=== PATIENT | female | born 1960 | race Caucasian/White ===

== ENCOUNTER 2016-04-03 10:35 | Inpatient (IN) | payer MEDICARE, OTHER ==
[~2016-04-03] VITALS: Ht 154.9 cm; Wt 79.8 kg
[~2016-04-03 10:35] MED LIST: Z.0.COMMODE-3:1; Z.0.WALKERFRONT
[2016-04-05] MEDS ORDERED: ATOR20TA15 PO (11:45)
[2016-04-05] MEDS ORDERED: OMEP20TA PO (11:46)
[2016-04-05] MEDS ORDERED: HYDR-2376 PO (11:47)
[2016-04-05] MEDS ORDERED: LYRI50CA PO (11:48)
[2016-04-08] MEDS: SODIUM CHLORID 0.9% 500 ML IV SCH (07:45)
[2016-04-08] MEDS: CHLORHEXIDINE GLUCONATE 4% SOLN 120 ML BTL TOP SCH (07:45)
[2016-04-08] MEDS ORDERED: INSULIN HUMAN REGULAR 1,000 UNITS/10 ML VIAL SQ PRN (07:45)
[2016-04-08] MEDS: TRANEXAMIC PERI-ARTICULAR 3,000 MG/NS 100 ML P-ARTICULR SCH ×4 (07:45→10:54)
[2016-04-08] MEDS ORDERED: VANCOMYCIN 1000 MG/NS 250 ML (for <70 kg) IV SCH ×2 (07:45)
[2016-04-08] MEDS ORDERED: METOPROLOL TARTRATE 25 MG TAB PO PRN (07:45)
[2016-04-08] MEDS: POVIDONE IODINE 7.5% SCRUB 118 ML BOTTLE TOP SCH (07:45)
[2016-04-08] MEDS: TRANEXAMIC ACID INJ 1,200 MG in SODIUM CHLORIDE 0.9% INJ 100 ML IV SCH ×2 (07:45→10:25)
[2016-04-08] MEDS ORDERED: ceFAZolin 2 GM PREMIX 50 ML IV SCH (07:45)
[2016-04-08] MEDS: EXPAREL PERI-ARTICULAR INJECTION (TOTAL VOL. 60 ML) P-ARTICULR SCH ×4 (07:45→10:54)
[2016-04-08 07:57] VITALS: BP 104/76; PULSE 80; RESP 16; TEMP 98.2; O2SAT 99
[2016-04-08] MEDS: LACTATED RINGER'S 1000 ML IV SCH (08:00)
[2016-04-08] MEDS ORDERED: PANTOPRAZOLE SOD 20 MG DELAYED RELEASE TAB PO PRN (09:00)
[2016-04-08] MEDS ORDERED: HYDR-3288 PO (09:04)
[2016-04-08] MEDS ORDERED: ENOX40P SQ (09:04)
[2016-04-08] MEDS ORDERED: ALUMINUM/MAGNESIUM/SIMETH 30 ML CUP PO PRN (09:15)
[2016-04-08] MEDS ORDERED: BISACODYL 10 MG SUPP PR PRN (09:15)
[2016-04-08] MEDS ORDERED: Post-op Orders (for Pharmacy) MISC XX ONE (09:15)
[2016-04-08] MEDS ORDERED: SODIUM CHLORIDE 0.9% FLUSH 5 ML FLUSH IVF PRN (09:15)
[2016-04-08] MEDS ORDERED: ONDANSETRON HCL 4 MG/2 ML VIAL IVP PRN (09:15)
[2016-04-08] MEDS ORDERED: diphenhydrAMINE HCL 50 MG/ML VIAL IV PRN (09:15)
[2016-04-08] MEDS ORDERED: NALOXONE HCL 0.4 MG/ML AMP IV PRN (09:15)
[2016-04-08] MEDS ORDERED: ACETAMINOPHEN/HYDROcodone 325 MG/10 MG TAB PO PRN (09:15)
[2016-04-08] MEDS ORDERED: ZOLPIDEM TARTRATE 5 MG TAB PO PRN (09:15)
[2016-04-08] MEDS ORDERED: MORPHINE SULFATE 4 MG/ML INJ IV PUSH PRN (09:15)
[2016-04-08] MEDS ORDERED: GENTAMICIN SULFATE 80 MG/2 ML VIAL ONE (09:32)
[2016-04-08] MEDS ORDERED: MIDAZOLAM HCL 2 MG/2 ML VIAL ONE (09:53)
[2016-04-08] MEDS ORDERED: ACETAMINOPHEN 1000 MG/100 ML VIAL IV ONE (09:53)
[2016-04-08] MEDS ORDERED: FAMOTIDINE 20 MG/2 ML VIAL ONE (09:53)
[2016-04-08] MEDS ORDERED: PROPOFOL 200 MG/20 ML AMP IV ONE (10:23)
[2016-04-08] MEDS ORDERED: LACTATED RINGER'S 1000 ML INJ 2,000 ML IV ONE (10:23)
[2016-04-08] MEDS ORDERED: NEOSTIGMINE 3 MG/3 ML SYR IV ONE (10:23)
[2016-04-08] MEDS ORDERED: ePHEDrine/NS 25 MG/5 ML SYR IV ONE (10:23)
[2016-04-08] MEDS ORDERED: ONDANSETRON HCL 4 MG/2 ML VIAL IV PUSH ONE (10:23)
--- NOTE | 2016-04-08 11:36 | EKG ---
Date Performed: 04/08/2016 Time Performed: 08:31:11 PTAGE: 55 years EKG: Sinus rhythm NORMAL ECG NO PREVIOUS TRACING DOCTOR: Bull Fuentes Interpretating Date/Time 04/08/2016 11:34:31
[2016-04-08] MEDS ORDERED: HYDROmorphone HCL PF 2 MG/ML VIAL ONE (11:48)
[2016-04-08] MEDS ORDERED: fentaNYL CITRATE 250 MCG/5 ML AMP ONE (12:43)
[2016-04-08] MEDS ORDERED: *morphine SULFATE 8 MG/ML PERIprocedure ONLY ONE (12:46)
[2016-04-08] MEDS ORDERED: *MEPERIDINE 25 MG INJ VIAL PERIprocedural Use ONLY ONE (12:59)
[2016-04-08] MEDS: SODIUM CHLOR 0.9% 1000 ML INJ 1,000 ML IV SCH ×2 (13:00→19:01)
[2016-04-08] MEDS ORDERED: DO NOT ADM ANY ANTICOAGULANT DRUGS XX PRN (13:45)
[2016-04-08] MEDS: ceFAZolin 2 GM PREMIX 50 ML IV SCH ×2 (14:15→20:46)
[2016-04-08 14:45] LABS: AUTOMATED NEUTROPHIL # 12.4 TH/MM3 (1.8-7.7); BASOPHIL % 0.2 % (0.0-2.0); EOSINOPHIL % 0.2 % (0.0-4.0); HEMATOCRIT 35.2 % (35.0-46.0); HEMO FLAGS DIFF FINAL; LYMPH % 9.3 % (9.0-44.0); LYMPHOCYTE # 1.3 TH/MM3 (1.0-4.8); MEAN CELL VOLUME 86.2 FL (80.0-100.0); MEAN CORPUSCULAR HEMOGLOBIN 28.7 PG (27.0-34.0); MEAN CORPUSCULAR HGB CONC 33.3 % (32.0-36.0); NEUT % 89.3 % (16.0-70.0); PLATELET COUNT 232 TH/MM3 (150-450); RED BLOOD COUNT 4.09 MIL/MM3 (4.00-5.30); RED CELL DISTRIBUTION WIDTH 15.2 % (11.6-17.2); WHITE BLOOD COUNT 13.9 TH/MM3 (4.0-11.0)
--- NOTE | 2016-04-08 14:57 | RADRPT ---
EXAM DATE/TIME: 04/08/2016 13:54 [facility] COMPARISON: No previous studies available for comparison. INDICATIONS : Right hip prosthesis. MEDICAL HISTORY : unobtainable SURGICAL HISTORY : unobtainable ENCOUNTER: Initial ACUITY: 1 day PAIN SCORE: 8/10 LOCATION: Right hip FINDINGS: The patient is status post a total hip arthroplasty with a bipolar prosthesis. Prosthesis is well-sea gail. Alignment is anatomic. A fracture is not appreciated. CONCLUSION: Anatomic alignment. Xavier Garcia MD FACR Board Certified Radiologist. This report was verified electronically.
[2016-04-08 14:59] LABS: BICARBONATE 27.6 MEQ/L (21.0-32.0)
[2016-04-08 18:20] VITALS: BP 96/53; PULSE 69; RESP 14; TEMP 95.1; O2SAT 100
[2016-04-08 20:10] VITALS: BP 88/59; PULSE 71; RESP 16; TEMP 96.6; O2SAT 100
[2016-04-08] MEDS: SODIUM CHLORIDE 0.9% FLUSH 5 ML FLUSH IVF SCH (20:46)
[2016-04-08] MEDS: PREGABALIN 25 MG CAP PO SCH (21:00)
--- NOTE | 2016-04-08 21:14 | PD.CONS ---
[facility] By [facility] Reason for Consult Medical management Primary Care Physician Umu Murguia MD Diagnoses: History of Present Illness 55 years old female admitted for right total hip arthroplasty due to arthritis, [facility] consulted for medical management, patient seen post of doing well, pain is tolerable, no chest pain short of breath abdominal pain diarrhea constipation, orthopnea or PND, patient denied any previous history of hypertension hypercholesterolemia, coronary artery disease or other thyroid issue Review of Systems Other All 10 systems reviewed and was positive for what is mentioned in history of present illness otherwise negative Past Family Social History Allergies: Coded Allergies: No Known Allergies (Unverified , 04/08/16) Past Medical History Denied history of hypertension hyperlipidemia diabetes mellitus or coronary artery disease Family History Review nontender V3 Social History Admitted looking but she decreased to 2-3 cigarettes per day, no alcohol or illicit drug abuse Physical Exam Vital Signs Vital Signs Date Time Temp Pulse Resp B/P Pulse Ox O2 Delivery O2 Flow Rate FiO2 04/08/16 18:20 95.1 69 14 96/53 100 04/08/16 15:40 97.6 65 16 102/53 98 Nasal Cannula 2 04/08/16 15:00 67 16 100/54 97 Nasal Cannula 2 04/08/16 14:00 69 15 96/52 96 Nasal Cannula 2 04/08/16 13:45 68 15 92/52 95 Nasal Cannula 2 04/08/16 13:30 70 15 90/53 95 Nasal Cannula 2 04/08/16 13:15 70 14 92/52 95 Nasal Cannula 2 04/08/16 13:00 71 14 98/55 99 Nasal Cannula 3 04/08/16 12:45 80 14 105/62 98 Nasal Cannula 3 04/08/16 12:37 97.5 83 13 118/69 97 Nasal Cannula 3 04/08/16 07:57 98.2 80 16 104/76 99 Physical Exam GENERAL: This is a well-nourished, well-developed patient, in no apparent distress. SKIN: No rashes, warm and dry HEAD: Atraumatic. Normocephalic. EYES: Pupils equal round and reactive. Extraocular motions intact. No scleral icterus. ENT: Nose without bleeding, or drainage, Airway patent. NECK: Trachea midline. Supple CARDIOVASCULAR: Regular rate and rhythm without murmurs, gallops, or rubs. RESPIRATORY: Fair air entry bilaterally. No wheezes, rales, or rhonchi. GASTROINTESTINAL: Abdomen soft, non-tender, nondistended. Positive bowel sounds MUSCULOSKELETAL: Extremities without clubbing, cyanosis, or edema. Pedal pulses appreciated, able to wiggle toes on both feet NEUROLOGICAL: Awake and alert. Moves all extremity. Normal speech.no focal neurological deficit Laboratory Laboratory Tests Test 04/08/16 04/08/16 08:00 14:32 Blood Type A POSITIVE Antibody Screen NEGATIVE Blood Bank Comment White Blood Count 13.9 Red Blood Count 4.09 Hemoglobin 11.7 Hematocrit 35.2 Mean Corpuscular Volume 86.2 Mean Corpuscular Hemoglobin 28.7 Mean Corpuscular Hemoglobin 33.3 Concent Red Cell Distribution Width 15.2 Platelet Count 232 Mean Platelet Volume 8.0 Neutrophils (%) (Auto) 89.3 Lymphocytes (%) (Auto) 9.3 Monocytes (%) (Auto) 1.0 Eosinophils (%) (Auto) 0.2 Basophils (%) (Auto) 0.2 Neutrophils # (Auto) 12.4 Lymphocytes # (Auto) 1.3 Monocytes # (Auto) 0.1 Eosinophils # (Auto) 0.0 Basophils # (Auto) 0.0 CBC Comment DIFF FINAL Differential Comment Sodium Level 143 Potassium Level 4.0 Chloride Level 111 Carbon Dioxide Level 27.6 Anion Gap 4 Blood Urea Nitrogen 12 Creatinine 0.71 Estimat Glomerular Filtration 86 Rate Random Glucose 139 Calcium Level 8.1 Result Diagram: 04/08/16 1432 04/08/16 1432 Imaging Last Impressions Hip and Pelvis X-Ray 04/08/16 0000 Signed Impressions: Service Date/Time: Friday, April 08, 2016 13:54 - CONCLUSION: Anatomic alignment. Xavier Garcia MD Assessment and Plan Assessment and Plan 55 years old female admitted for Arthritis status post right total hip arthroplasty: Doing well postop, postop protocol per ortho, pain management with morphine and [place], DVT prophylaxis with Lovenox, will order basic CBC BMP , we'll monitor her vitals, regular diet. Thank you this consultation will follow patient along with you Rhoda Agrawal MD Apr 08, 2016 21:14
[2016-04-08 22:24] VITALS: O2SAT 97
[2016-04-08] MEDS: ACETAMINOPHEN/HYDROcodone 325 MG/10 MG TAB PO PRN (23:13)
[2016-04-09] VITALS (11 sets, daily range): BP systolic 78–99; BP diastolic 49–62; PULSE 65–110; RESP 16–18; TEMP 96.9–100.2; O2SAT 95–100
[2016-04-09] MEDS: SODIUM CHLORID 0.9% 500 ML IV SCH (00:25)
[2016-04-09] MEDS: ceFAZolin 2 GM PREMIX 50 ML IV SCH (01:51)
[2016-04-09] MEDS: SODIUM CHLOR 0.9% 1000 ML INJ 1,000 ML IV SCH ×2 (05:01→11:41)
[2016-04-09 05:16] LABS: HEMATOCRIT 31.6 % (35.0-46.0); MEAN CELL VOLUME 85.5 FL (80.0-100.0); MEAN CORPUSCULAR HEMOGLOBIN 28.1 PG (27.0-34.0); MEAN CORPUSCULAR HGB CONC 32.9 % (32.0-36.0); PLATELET COUNT 236 TH/MM3 (150-450); RED BLOOD COUNT 3.69 MIL/MM3 (4.00-5.30); REVIEW FLAG FINAL; WHITE BLOOD COUNT 13.2 TH/MM3 (4.0-11.0)
[2016-04-09 05:39] LABS: BICARBONATE 25.4 MEQ/L (21.0-32.0); POTASSIUM 4.2 MEQ/L (3.5-5.1)
[2016-04-09] MEDS: ACETAMINOPHEN/HYDROcodone 325 MG/10 MG TAB PO PRN ×3 (06:16→17:45)
[2016-04-09] MEDS: LACTATED RINGER'S 1000 ML IV SCH (07:45)
[2016-04-09] MEDS: CHLORHEXIDINE GLUCONATE 4% SOLN 120 ML BTL TOP SCH (07:45)
[2016-04-09] MEDS: POVIDONE IODINE 7.5% SCRUB 118 ML BOTTLE TOP SCH (07:45)
--- NOTE | 2016-04-09 08:09 | PD.ORT.PN ---
Subjective Post Op Day #: 1 Subjective Remarks feeling well. pain controlled. Objective Vitals Vital Signs Date Time Temp Pulse Resp B/P Pulse Ox O2 Delivery O2 Flow Rate FiO2 04/09/16 05:35 97.5 85 17 84/51 96 04/09/16 00:30 96.9 65 17 86/59 96 04/08/16 22:24 97 Nasal Cannula 3.00 04/08/16 20:10 96.6 71 16 88/59 100 04/08/16 18:20 95.1 69 14 96/53 100 04/08/16 15:40 97.6 65 16 102/53 98 Nasal Cannula 2 04/08/16 15:00 67 16 100/54 97 Nasal Cannula 2 04/08/16 14:00 69 15 96/52 96 Nasal Cannula 2 04/08/16 13:45 68 15 92/52 95 Nasal Cannula 2 04/08/16 13:30 70 15 90/53 95 Nasal Cannula 2 04/08/16 13:15 70 14 92/52 95 Nasal Cannula 2 04/08/16 13:00 71 14 98/55 99 Nasal Cannula 3 04/08/16 12:45 80 14 105/62 98 Nasal Cannula 3 04/08/16 12:37 97.5 83 13 118/69 97 Nasal Cannula 3 I/O 04/08/16 04/08/16 04/08/16 04/09/16 04/09/16 04/09/16 07:00 15:00 23:00 07:00 15:00 23:00 Intake Total 1600 ml 440 ml 240 ml Output Total 180 ml 1100 ml 1150 ml Balance 1420 ml -660 ml -910 ml Intake Oral 240 ml 240 ml IV Total 200 ml Other 1600 ml Output Urine Total 30 ml 1100 ml 1150 ml Estimated Blood Loss 150 ml # Bowel Movements 0 Result Diagram: 04/09/16 0444 04/09/16 0444 Objective Remarks in bed, nad dressing c/d/i neg homans nvi Assessment & Plan Ortho Post Op Day #: 1 Problem List: Assessment and Plan s/p R ILAN posterior approach wbat daily dressing changes lovenox rx in chart d/c planning to snf f/up dr. simmons 2 weeks Octavio Denny Apr 09, 2016 08:09
--- NOTE | 2016-04-09 08:10 | HHI.DCPOC ---
Discharge Care Plan Diagnosis: (1) Primary localized osteoarthrosis, pelvic region and thigh Your Health Problems Are: Difficulty with ADL Goals to Promote Your Health * To prevent worsening of your condition and complications * To maintain your health at the optimal level Directions to Meet Your Goals Take your medications as prescribed Follow your dietary instruction Follow activity as directed Keep your appointments as scheduled Take your immunizations and boosters as scheduled If your symptoms worsen call your PCP, if no PCP go to Urgent Care Center or Emergency Room Smoking is Dangerous to Your Health. Avoid second hand smoke Call the 24-hour hour crisis hotline for domestic abuse at Octavio Denny Apr 09, 2016 08:10
[2016-04-09] MEDS: SODIUM CHLORIDE 0.9% FLUSH 5 ML FLUSH IVF SCH ×2 (09:57→21:53)
[2016-04-09] MEDS: PREGABALIN 25 MG CAP PO SCH ×2 (09:58→21:54)
[2016-04-09] MEDS: ENOXAPARIN SODIUM 40 MG/0.4 ML SYRINGE SQ SCH (11:09)
--- NOTE | 2016-04-09 13:39 | HHI.PR ---
Subjective Remarks Patient sitting on the chair, denied pain, afebrile Objective Vitals Vital Signs Date Time Temp Pulse Resp B/P Pulse Ox O2 Delivery O2 Flow Rate FiO2 04/09/16 11:09 17 04/09/16 08:00 99.6 95 16 89/52 95 04/09/16 05:35 97.5 85 17 84/51 96 04/09/16 00:30 96.9 65 17 86/59 96 04/08/16 22:24 97 Nasal Cannula 3.00 04/08/16 20:10 96.6 71 16 88/59 100 04/08/16 18:20 95.1 69 14 96/53 100 04/08/16 15:40 97.6 65 16 102/53 98 Nasal Cannula 2 04/08/16 15:00 67 16 100/54 97 Nasal Cannula 2 04/08/16 14:00 69 15 96/52 96 Nasal Cannula 2 04/08/16 13:45 68 15 92/52 95 Nasal Cannula 2 I/O 04/08/16 04/08/16 04/08/16 04/09/16 04/09/16 04/09/16 07:00 15:00 23:00 07:00 15:00 23:00 Intake Total 1600 ml 440 ml 240 ml Output Total 180 ml 1100 ml 1150 ml Balance 1420 ml -660 ml -910 ml Intake Oral 240 ml 240 ml IV Total 200 ml Other 1600 ml Output Urine Total 30 ml 1100 ml 1150 ml Estimated Blood Loss 150 ml # Bowel Movements 0 Result Diagram: 04/09/16 0444 04/09/16 0444 Objective Remarks GENERAL: This is a well-nourished, well-developed patient, in no apparent distress. SKIN: No rashes, warm and dry HEAD: Atraumatic. Normocephalic. EYES: Pupils equal round and reactive. Extraocular motions intact. No scleral icterus. ENT: Nose without bleeding, or drainage, Airway patent. NECK: Trachea midline. Supple CARDIOVASCULAR: Regular rate and rhythm without murmurs, gallops, or rubs. RESPIRATORY: Fair air entry bilaterally. No wheezes, rales, or rhonchi. GASTROINTESTINAL: Abdomen soft, non-tender, nondistended. Positive bowel sounds MUSCULOSKELETAL: Extremities without clubbing, cyanosis, or edema. Pedal pulses appreciated, able to wiggle toes on both feet NEUROLOGICAL: Awake and alert. Moves all extremity. Normal speech.no focal neurological deficit A/P Assessment and Plan 55 years old female admitted for Arthritis status post right total hip arthroplasty: Doing well postop, postop protocol per ortho, pain management with morphine and [place], DVT prophylaxis with Lovenox, CBC BMP reviewed showed mild leukocytosis 13 K mostly stress reaction, no signs of infection no cough or dysuria, we'll monitor her vitals, regular diet. Rhoda Agrawal MD Apr 09, 2016 13:39
--- NOTE | 2016-04-09 17:34 | MP ---
cc: TINO CATES DATE OF SURGERY 04/08/2016 PREOPERATIVE DIAGNOSIS Right hip osteoarthritis. POSTOPERATIVE DIAGNOSES Right hip osteoarthritis. PROCEDURE Right total hip arthroplasty. SURGEON Dr. Tino Cates RESIDENT CAREGIVER [place] Uriostegui. ANESTHESIA General. ESTIMATED BLOOD LOSS 100 cc. COMPLICATIONS None. IMPLANTS USED DePuy Corail size 11 Press-Fit high offset femoral stem, size 52 solid [place] Gription cup, size 36 mm +4 high offset polyethylene highly cross-linked liner, size 36 mm ceramic head, size +1.5 neck. JUSTIFICATION The patient is 55-year-old female with a history of severe end-stage osteoarthritis involving the right hip. She has severe disabling pain with standing, walking ambulation, weightbearing activities. No history of pain at rest. The pain interferes with activities of daily living. She has failed greater than 3 months of nonoperative conservative treatment to include medication therapy, ambulatory assisted aids, home exercise program, activity modification, weight loss attempts. X-ray of the right hip reveal severe end-stage osteoarthritis with joint space narrowing, subchondral sclerosis, subchondral cyst, osteophyte formation and subluxation. The patient was counseled as to the risks and benefits and alternative to total hip arthroplasty. The risks of surgery which include but limited to anesthesia, bleeding, infection, damage to nerves, blood vessels, fracture-dislocation, leg length discrepancies, blood clots, pulmonary embolism, even . The patient favored the benefits over the risks. Her pain was severe, she did wish to proceed with surgery. PROCEDURE IN DETAILS A written consent was obtained. The patient identified by name, taken to the operating room and placed supine on the operating room table. General anesthesia was administered with 2 grams of IV Ancef and 1 gram of IV vancomycin. The patient was carefully turned to the left lateral decubitus position. A lateral arm roll was placed. All bony prominences and pressure points were well padded. The patient's neck was carefully monitored and kept neutral. The right hip and right lower extremity prepped and draped using as isopropyl alcohol, Hibiclens solution and Chloraprep solution. After appropriate time-out was performed a longitudinal incision was made over posterolateral aspect of right hip. The fascial layer was incised. The pyriformis and capsule was incised and tagged with #2 FiberWire suture. The hip was dislocated and oscillating saw was used to perform a femoral neck cut. A 10 blade scalpel was used to excise the labrum. Sequential reaming began at size 47 mm and was carried to size 52 mm. The [place] Gription size 52 cup was implanted at approximately 45 degrees of abduction and 10 degrees anteversion. There was good purchase and fixation after insertion of the cup. A screw hole eliminator was placed followed by the polyethylene liner. The liner was impacted in place and tested for stability. Attention was turned to the femur where a box cutting osteotome was used to gain entrance into the intramedullary canal of the femur. This was followed by canal finder and lateralizing reamer. Sequential broaching up to size 11 was followed by calcar planer. Trial head and neck combinations were evaluated and the final components implanted with a +1.5 neck. The hip could be reduced with appropriate soft tissue tension. The leg achieved full extension and external rotation without evidence of anterior instability or impingement. The hip could be flexed 90 degrees and internally rotated to 70 degrees before evidence of posterior instability. Soft tissue tension felt appropriate. Clinically the leg lengths felt relatively symmetric. The surgical wound was thoroughly irrigated with sterile saline pulse lavage antibiotic impregnated solution. The pyriformis and capsule was repaired with #2 FiberWire suture. Fascial layer closed with #1 Vicryl suture. The subcutaneous layer with 2-0 Vicryl suture. Skin was closed with Dermabond. Sterile dressing applied. The patient tolerated the procedure well with no intraoperative complications noted. Giles Denny physician gift shop assistant, certified was present during the entire procedure to include patient positioning and the procedure itself. The medical necessity of physician gift shop assistant was indicated in this case due to the complexity of the procedure. He assisted with both manipulation of the leg and also retraction of muscle, tendon, bone, neurovascular structure. He assisted with dislocation and reduction of the hip as well as preparation of bone and implantation of the prosthetic replacements. MD SUN [place]/TWYLA /12:14 PM /5:19 PM
[2016-04-09] MEDS ORDERED: SODIUM CHLOR 0.9% 250 ML INJ 250 ML IV PRN (18:00)
[2016-04-09] MEDS ORDERED: SODIUM CHLOR 0.9% 250 ML INJ 250 ML IV ONE (18:00)
[2016-04-09 20:26] LABS: HEMATOCRIT 26.7 % (35.0-46.0); REVIEW FLAG FINAL
[2016-04-09] MEDS: MULTIVITAMINS/MINERALS THERAPEUTIC TAB PO SCH (21:53)
[2016-04-09] MEDS: DOCUSATE SODIUM 100 MG CAP PO SCH (21:53)
[2016-04-10] VITALS (7 sets, daily range): BP systolic 86–94; BP diastolic 46–65; PULSE 76–121; RESP 17–20; TEMP 100–101.6; O2SAT 92–100
[2016-04-10] MEDS: ACETAMINOPHEN/HYDROcodone 325 MG/10 MG TAB PO PRN ×4 (00:23→20:08)
[2016-04-10] MEDS: SODIUM CHLOR 0.9% 1000 ML INJ 1,000 ML IV SCH ×3 (00:23→20:08)
[2016-04-10] MEDS: MAGNESIUM HYDROXIDE SUSP 30 ML CUP PO PRN (03:59)
[2016-04-10] MEDS: LACTATED RINGER'S 1000 ML IV SCH (04:23)
[2016-04-10] MEDS: CHLORHEXIDINE GLUCONATE 4% SOLN 120 ML BTL TOP SCH (04:24)
[2016-04-10] MEDS: POVIDONE IODINE 7.5% SCRUB 118 ML BOTTLE TOP SCH (04:24)
[2016-04-10] MEDS: PREGABALIN 25 MG CAP PO SCH ×2 (08:18→20:06)
[2016-04-10] MEDS: SODIUM CHLORIDE 0.9% FLUSH 5 ML FLUSH IVF SCH ×2 (08:18→20:06)
[2016-04-10] MEDS: DOCUSATE SODIUM 100 MG CAP PO SCH ×2 (08:18→20:06)
[2016-04-10] MEDS: MULTIVITAMINS/MINERALS THERAPEUTIC TAB PO SCH ×2 (08:18→20:06)
[2016-04-10 08:24] LABS: HEMATOCRIT 29.8 % (35.0-46.0); MEAN CELL VOLUME 85.5 FL (80.0-100.0); MEAN CORPUSCULAR HEMOGLOBIN 28.1 PG (27.0-34.0); MEAN CORPUSCULAR HGB CONC 32.8 % (32.0-36.0); PLATELET COUNT 218 TH/MM3 (150-450); RED BLOOD COUNT 3.49 MIL/MM3 (4.00-5.30); RED CELL DISTRIBUTION WIDTH 15.5 % (11.6-17.2); REVIEW FLAG FINAL; WHITE BLOOD COUNT 12.3 TH/MM3 (4.0-11.0)
[2016-04-10 08:38] LABS: BICARBONATE 24.7 MEQ/L (21.0-32.0); POTASSIUM 3.7 MEQ/L (3.5-5.1)
--- NOTE | 2016-04-10 09:03 | PD.ORT.PN ---
Subjective Post Op Day #: 2 Subjective Remarks feeling well. pain controlled. denies cp and sob. Objective Vitals Vital Signs Date Time Temp Pulse Resp B/P Pulse Ox O2 Delivery O2 Flow Rate FiO2 04/10/16 03:59 100.7 115 17 89/46 92 04/10/16 00:20 100.5 121 17 93/65 98 04/09/16 20:05 100.2 110 17 78/53 95 04/09/16 18:40 105 79/49 95/49 04/09/16 17:50 100 89/52 04/09/16 16:00 99.9 101 16 98/62 98 04/09/16 15:33 97 21 04/09/16 13:50 97 16 85/54 99/58 04/09/16 12:09 16 04/09/16 12:00 98.8 95 18 87/54 100 04/09/16 11:09 17 I/O 04/09/16 04/09/16 04/09/16 04/10/16 04/10/16 04/10/16 07:00 15:00 23:00 07:00 15:00 23:00 Intake Total 240 ml 1320 ml 240 ml Output Total 1150 ml Balance -910 ml 1320 ml 240 ml Intake Oral 240 ml 1320 ml 240 ml Output Urine Total 1150 ml # Voids 7 3 # Bowel Movements 0 0 Result Diagram: 04/09/16195504/09/16 0444 Objective Remarks in chair, nad incision no erythema, no drainage neg homans nvi Assessment & Plan Ortho Post Op Day #: 2 Problem List: Assessment and Plan s/p R ILAN posterior approach wbat daily dressing changes lovenox elevated temp - CXR and UA rx in chart d/c planning to snf f/up dr. simmons 2 weeks Octavio Denny Apr 10, 2016 09:02
--- NOTE | 2016-04-10 10:35 | RADRPT ---
EXAM DATE/TIME: 04/10/2016 10:09 [facility] COMPARISON: No previous studies available for comparison. INDICATIONS: Fever. MEDICAL HISTORY: None. SURGICAL HISTORY: Right total hip. ENCOUNTER: Subsequent ACUITY: 3 days PAIN SCORE: 0/10 LOCATION: Bilateral chest FINDINGS: Patchy air space disease is present in both lung bases. Heart is minimally enlarged, pulmonary vascu larity is normal. Portion of bony skeleton visualized unremarkable. CONCLUSION: Minimal air space disease in both lung bases. Considerations include atelectasis versus early inflam matory process. Xavier Garcia MD FACR on April 10, 2016 at 10:27 Board Certified Radiologist. This report was verified electronically.
[2016-04-10] MEDS: ENOXAPARIN SODIUM 40 MG/0.4 ML SYRINGE SQ SCH (12:20)
[2016-04-10 15:03] LABS: BLOOD, URINE NEG (NEG); GLUCOSE,URINE NEG (NEG); KETONE, URINE NEG (NEG); MUCUS URINE FEW /lpf (OCC); NITRITE,URINE NEG (NEG); SQUAMOUS EPITHELIAL CELL URINE 4 /hpf (0-5); URINE COLOR YELLOW (YELLW/STRAW)
[2016-04-10 15:12] LABS: COMMENT (UR) CULT NOT INDICATED; CULTURE IF INDICATED CULT NOT INDICATED
--- NOTE | 2016-04-10 15:14 | HHI.PR ---
Subjective Remarks Follow up on right hip replacement Today patient having tachycardia with hypotension and fever max 100.7 however clinically she denied any lightheaded or dizziness or palpitation chest pain, she has some cough but not bringing up any phlegm, no abdominal pain diarrhea or him a no dysuria or urgency or frequency, urine has been sent for UA, chest x -ray showed dizziness possible consolidation versus atelectasis Objective Vitals Vital Signs Date Time Temp Pulse Resp B/P Pulse Ox O2 Delivery O2 Flow Rate FiO2 04/10/16 12:00 100.6 108 19 87/63 100 04/10/16 09:19 92 Nasal Cannula 21 04/10/16 08:00 100.0 110 19 86/56 96 04/10/16 03:59 100.7 115 17 89/46 92 04/10/16 00:20 100.5 121 17 93/65 98 04/09/16 20:05 100.2 110 17 78/53 95 04/09/16 18:40 105 79/49 95/49 04/09/16 17:50 100 89/52 04/09/16 16:00 99.9 101 16 98/62 98 04/09/16 15:33 97 21 I/O 04/09/16 04/09/16 04/09/16 04/10/16 04/10/16 04/10/16 06:59 14:59 22:59 06:59 14:59 22:59 Intake Total 240 ml 1320 ml 240 ml Output Total 1150 ml Balance -910 ml 1320 ml 240 ml Intake Oral 240 ml 1320 ml 240 ml Output Urine Total 1150 ml # Voids 7 3 # Bowel Movements 0 0 Result Diagram: 04/10/16 0745 04/10/16 0745 Objective Remarks GENERAL: This is a well-nourished, well-developed patient, in no apparent distress. SKIN: No rashes, warm and dry HEAD: Atraumatic. Normocephalic. EYES: Pupils equal round and reactive. Extraocular motions intact. No scleral icterus. ENT: Nose without bleeding, or drainage, Airway patent. NECK: Trachea midline. Supple CARDIOVASCULAR: Regular rate and rhythm without murmurs, gallops, or rubs. RESPIRATORY: Fair air entry bilaterally. No wheezes, rales, or rhonchi. GASTROINTESTINAL: Abdomen soft, non-tender, nondistended. Positive bowel sounds MUSCULOSKELETAL: Extremities without clubbing, cyanosis, or edema. Pedal pulses appreciated, able to wiggle toes on both feet NEUROLOGICAL: Awake and alert. Moves all extremity. Normal speech.no focal neurological deficit A/P Assessment and Plan 55 years old female admitted for Arthritis status post right total hip arthroplasty: postop protocol per ortho, pain management with morphine and [place], DVT prophylaxis with Lovenox, CBC BMP reviewed showed mild leukocytosis 13 K Hypotension tachycardia with a leukocytosis and persistent fever 100.7 max rule out of sepsis: Agree with checking UA, chest x-ray showing possible consolidation versus atelectasis, I will start patient on Levaquin 750 mg daily iv, will check sputum for culture and sensitivity, urine antigen for Legionella and pneumococcus, acetaminophen for fever, monitor closely, will check lactic acid, iv fluid to support blood pressure, if worsening transferred to the ICU and consult saddle tree stitcher Is cussed with patient and her at the nurse extensively Rhoda Agrawal MD Apr 10, 2016 15:14
[2016-04-10] MEDS ORDERED: LEVOFLOXACIN 750 MG PREMIX INJ 150 ML IV SCH (16:00)
[2016-04-11] VITALS (7 sets, daily range): BP systolic 82–93; BP diastolic 48–62; PULSE 92–117; RESP 16–18; TEMP 98.1–101; O2SAT 94–100
[2016-04-11] MEDS: LACTATED RINGER'S 1000 ML IV SCH (00:50)
[2016-04-11] MEDS ORDERED: SODIUM CHLOR 0.9% 1000 ML INJ 1,000 ML IV ONE ×2 (02:00→03:45)
[2016-04-11] MEDS: ACETAMINOPHEN 325 MG TAB PO PRN ×2 (02:01→12:09)
[2016-04-11] MEDS ORDERED: IBUPROFEN 600 MG TAB PO ONE (03:45)
[2016-04-11] MEDS ORDERED: PANTOPRAZOLE SOD 40 MG DELAYED RELEASE TAB PO ONE (03:45)
[2016-04-11] MEDS ORDERED: IBUPROFEN 400 MG TAB PO ONE (04:00)
[2016-04-11] MEDS: PIPERACIL-TAZO 4.5 GM PREMIX 100 ML IV SCH ×4 (04:35→22:52)
[2016-04-11] MEDS: MAGNESIUM HYDROXIDE SUSP 30 ML CUP PO PRN ×2 (04:35→21:32)
[2016-04-11 04:55] LABS: HEMATOCRIT 24.3 % (35.0-46.0); MEAN CELL VOLUME 84.8 FL (80.0-100.0); MEAN CORPUSCULAR HEMOGLOBIN 28.6 PG (27.0-34.0); MEAN CORPUSCULAR HGB CONC 33.8 % (32.0-36.0); PLATELET COUNT 187 TH/MM3 (150-450); RED BLOOD COUNT 2.87 MIL/MM3 (4.00-5.30); RED CELL DISTRIBUTION WIDTH 15.2 % (11.6-17.2); REVIEW FLAG FINAL; WHITE BLOOD COUNT 9.4 TH/MM3 (4.0-11.0)
[2016-04-11 05:11] LABS: BICARBONATE 22.9 MEQ/L (21.0-32.0); POTASSIUM 3.5 MEQ/L (3.5-5.1)
[2016-04-11] MEDS: SODIUM CHLOR 0.9% 1000 ML INJ 1,000 ML IV SCH ×3 (06:17→21:33)
--- NOTE | 2016-04-11 08:48 | PD.ORT.PN ---
Subjective Post Op Day #: 3 Subjective Remarks feeling well. pain controlled. denies cp and sob. has been hypotensive and with elevated temp. Objective Vitals Vital Signs Date Time Temp Pulse Resp B/P Pulse Ox O2 Delivery O2 Flow Rate FiO2 04/11/16 03:51 100.6 109 17 82/48 94 04/11/16 01:15 101.0 117 17 82/53 95 04/10/16 19:51 101.6 76 20 94/53 95 04/10/16 18:38 21 04/10/16 16:00 100.9 112 19 86/59 99 04/10/16 12:00 100.6 108 19 87/63 100 04/10/16 09:19 92 Nasal Cannula 21 I/O 04/10/16 04/10/16 04/10/16 04/11/16 04/11/16 04/11/16 07:00 15:00 23:00 07:00 15:00 23:00 Intake Total 240 ml 1680 ml 480 ml Balance 240 ml 1680 ml 480 ml Intake Oral 240 ml 1680 ml 480 ml # Voids 3 7 3 # Bowel Movements 0 0 0 Result Diagram: 04/11/166 04/11/16 0436 Objective Remarks in bed, nad incision no erythema, no drainage neg homans nvi Assessment & Plan Ortho Post Op Day #: 3 Problem List: Assessment and Plan s/p R ILAN posterior approach wbat daily dressing changes lovenox hypotensive - has received bolus x 2 elevated temp - CXR and UA neg start vanco doppler US bilate LE rx in chart d/c planning to snf - hold d/c today f/up dr. simmons 2 weeks Octavio Denny Apr 11, 2016 08:48
[2016-04-11] MEDS: MULTIVITAMINS/MINERALS THERAPEUTIC TAB PO SCH ×2 (08:52→21:32)
[2016-04-11] MEDS: DOCUSATE SODIUM 100 MG CAP PO SCH ×2 (08:52→21:32)
[2016-04-11] MEDS: SODIUM CHLORIDE 0.9% FLUSH 5 ML FLUSH IVF SCH ×2 (08:52→21:33)
[2016-04-11] MEDS: LACTOBACILLUS ACIDOPHILUS TAB PO SCH ×3 (08:52→17:34)
[2016-04-11] MEDS: PREGABALIN 25 MG CAP PO SCH ×2 (08:52→21:32)
[2016-04-11] MEDS: VANCOMYCIN INJ 1,000 MG in SODIUM CHLOR 0.9% 250 ML INJ 250 ML IV SCH ×2 (10:02→21:33)
--- NOTE | 2016-04-11 11:27 | RADRPT ---
EXAM DATE/TIME: 04/11/2016 10:14 [facility] COMPARISON: No previous studies available for comparison. INDICATIONS : Bilateral leg swelling. MEDICAL HISTORY : Gastroesophageal reflux disease. Arthritis. Blood transfusions. SURGICAL HISTORY : Total left hip replacment. ENCOUNTER: Initial ACUITY: 1 day PAIN SCORE: 10 LOCATION: Right leg. TECHNIQUE: Venous ultrasound of the left and right leg was performed from the inguinal ligament t o the proximal calf. Real-time, color Doppler and spectral tracing, compression and augmentation ish hniques were used. FINDINGS: RIGHT LEG: There is normal compressibility of the deep venous system from the inguinal region to the proximal calf. No echogenic clot is seen in the lumen of the common femoral, femoral, popliteal, and posterior tibial veins. There is a normal response of the venous system to proximal and distal augmentation and respiration. LEFT LEG: There is normal compressibility of the deep venous system from the inguinal region to t he proximal calf. No echogenic clot is seen in the lumen of the common femoral, femoral, popliteal, and posterior tibial veins. There is a normal response of the venous system to proximal and distal a ugmentation and respiration. CONCLUSION: Negative exam with no evidence of deep venous thrombosis. Jonh Dye MD on April 11, 2016 at 11:25 Board Certified Radiologist. This report was verified electronically.
[2016-04-11] MEDS: ENOXAPARIN SODIUM 40 MG/0.4 ML SYRINGE SQ SCH (12:04)
--- NOTE | 2016-04-11 12:06 | HHI.PR ---
Subjective Remarks Follow-up anemia, fever, hypotension. Patient has no complaints at this time. Pain is well controlled. Denies headache, blurred vision, lightheadedness, dizziness, chest pain, dyspnea, nausea, vomiting, diarrhea. Objective Vitals Vital Signs Date Time Temp Pulse Resp B/P Pulse Ox O2 Delivery O2 Flow Rate FiO2 04/11/16 08:00 98.1 93 18 87/50 95 04/11/16 03:51 100.6 109 17 82/48 94 04/11/16 01:15 101.0 117 17 82/53 95 04/10/16 19:51 101.6 76 20 94/53 95 04/10/16 18:38 21 04/10/16 16:00 100.9 112 19 86/59 99 I/O 04/10/16 04/10/16 04/10/16 04/11/16 04/11/16 04/11/16 07:00 15:00 23:00 07:00 15:00 23:00 Intake Total 240 ml 1680 ml 480 ml Balance 240 ml 1680 ml 480 ml Intake Oral 240 ml 1680 ml 480 ml # Voids 3 7 3 # Bowel Movements 0 0 0 Result Diagram: 04/11/16 0436 04/11/16 0436 Imaging Last Impressions Lower Extremity Ultrasound 04/11/16 0000 Signed Impressions: Service Date/Time: April 10:14 - CONCLUSION: Negative exam with no evidence of deep venous thrombosis. Jonh Dye MD Chest X-Ray 04/10/16 0000 Signed Impressions: Service Date/Time: Sunday, April 10, 2016 10:09 - CONCLUSION: Minimal air space disease in both lung bases. Considerations include atelectasis versus early inflammatory process. Xavier Garcia MD FACR Hip and Pelvis X-Ray 04/08/16 0000 Signed Impressions: Service Date/Time: Friday, April 08, 2016 13:54 - CONCLUSION: Anatomic alignment. Xavier Garcia MD Objective Remarks General: No acute distress. Sitting up in a chair. Heart: Regular rate and rhythm. No murmur. Lungs: Clear to auscultation bilaterally. No wheezes, rales, or rhonchi. Breathing is nonlabored. Abdomen: Soft, nontender, nondistended. Extremities: No lower extremity edema. Psych: Alert and oriented. Procedures 04/08/16 right total hip arthroplasty Urinary Catheter: No Vascular Central Line Catheter: No A/P Problem List: (1) Fever ICD Code: R50.9 Status: Acute (2) Anemia ICD Code: D64.9 Status: Acute (3) Hypotension ICD Code: I95.9 Status: Acute (4) Primary localized osteoarthrosis, pelvic region and thigh ICD Code: M16.10 Status: Acute Assessment and Plan 1. Osteoarthritis, right hip: Status post right total hip arthroplasty, POD #3. Continue pain control, bowel regimen, physical therapy. 2. Hypotension, tachycardia, fever: No apparent source of infection. UA is negative. Chest x-ray shows atelectasis. Blood cultures are pending. Patient is asymptomatic. Continue antibiotics, IV fluids. Leukocytosis has resolved. 3. Lactic acidosis: Serum lactic acid level is elevated. Monitor labs. 4. DVT prophylaxis: Lovenox. 5. Anemia: Postoperative, likely secondary to blood loss. Monitor H&H. Transfuse if necessary. Sincere Telles MD Apr 11, 2016 12:06
[2016-04-11] MEDS: LEVOFLOXACIN 750 MG TAB PO SCH (15:33)
[2016-04-11] MEDS: ACETAMINOPHEN/HYDROcodone 325 MG/10 MG TAB PO PRN ×2 (15:34→21:32)
[2016-04-11 16:21] LABS: HEMATOCRIT 29.7 % (35.0-46.0); REVIEW FLAG FINAL
[2016-04-12 00:10] VITALS: BP 88/57; PULSE 101; RESP 16; TEMP 99.7; O2SAT 97
[2016-04-12 04:00] VITALS: BP 94/59; PULSE 100; RESP 16; TEMP 99.4; O2SAT 97
[2016-04-12] MEDS: PIPERACIL-TAZO 4.5 GM PREMIX 100 ML IV SCH ×3 (04:44→16:00)
[2016-04-12] MEDS: ACETAMINOPHEN/HYDROcodone 325 MG/10 MG TAB PO PRN ×3 (04:53→15:41)
[2016-04-12] MEDS: LACTATED RINGER'S 1000 ML IV SCH (07:45)
[2016-04-12 08:00] VITALS: BP 99/59; PULSE 106; RESP 18; TEMP 99.4; O2SAT 96
[2016-04-12] MEDS: DOCUSATE SODIUM 100 MG CAP PO SCH (09:00)
--- NOTE | 2016-04-12 09:04 | PD.ORT.PN ---
Subjective Post Op Day #: 4 Subjective Remarks feeling well. pain controlled. denies cp and sob. had BM. temp improved. Objective Vitals Vital Signs Date Time Temp Pulse Resp B/P Pulse Ox O2 Delivery O2 Flow Rate FiO2 04/12/16 08:00 99.4 106 18 99/59 96 04/12/16 04:00 99.4 100 16 94/59 97 04/12/16 00:10 99.7 101 16 88/57 97 04/11/16 21:28 104 04/11/16 20:59 21 04/11/16 19:56 99.7 101 16 83/57 100 04/11/16 16:00 99.0 100 18 93/60 99 04/11/16 12:00 99.0 92 18 92/62 95 I/O 04/11/16 04/11/16 04/11/16 04/12/16 04/12/16 04/12/16 07:00 15:00 23:00 07:00 15:00 23:00 Intake Total 480 ml 720 ml 480 ml 480 ml Balance 480 ml 720 ml 480 ml 480 ml Intake Oral 480 ml 720 ml 480 ml 480 ml # Voids 3 4 1 2 # Bowel Movements 0 0 Result Diagram: 04/11/16 1556 04/11/16 0436 Objective Remarks in chair, nad dressing c/d/i neg homans nvi Assessment & Plan Ortho Post Op Day #: 4 Problem List: Assessment and Plan s/p R ILAN posterior approach wbat daily dressing changes lovenox hypotensive - improved elevated temp - resolving doppler US bilate LE - neg rx in chart d/c planning to snf - cleared for d/c today f/up dr. simmons 2 weeks Octavio Denny Apr 12, 2016 09:04
[2016-04-12] MEDS: VANCOMYCIN INJ 1,000 MG in SODIUM CHLOR 0.9% 250 ML INJ 250 ML IV SCH (09:40)
[2016-04-12] MEDS: SODIUM CHLORIDE 0.9% FLUSH 5 ML FLUSH IVF SCH (09:42)
[2016-04-12] MEDS: LACTOBACILLUS ACIDOPHILUS TAB PO SCH ×2 (09:42→12:46)
[2016-04-12] MEDS: PREGABALIN 25 MG CAP PO SCH (09:42)
[2016-04-12] MEDS: MULTIVITAMINS/MINERALS THERAPEUTIC TAB PO SCH (09:43)
[2016-04-12 12:00] VITALS: BP 85/58; PULSE 95; RESP 18; TEMP 99.7; O2SAT 99
[2016-04-12] MEDS: ENOXAPARIN SODIUM 40 MG/0.4 ML SYRINGE SQ SCH (12:46)
--- NOTE | 2016-04-12 12:51 | HHI.PR ---
Subjective Remarks Follow up fever, hypotension, tachycardia. The patient has no complaints at this time. Denies headache, lightheadedness, dizziness, chest pain, dyspnea. Objective Vitals Vital Signs Date Time Temp Pulse Resp B/P Pulse Ox O2 Delivery O2 Flow Rate FiO2 04/12/16 12:00 99.7 95 18 85/58 99 04/12/16 10:52 16 04/12/16 10:52 16 04/12/16 08:00 99.4 106 18 99/59 96 04/12/16 04:00 99.4 100 16 94/59 97 04/12/16 00:10 99.7 101 16 88/57 97 04/11/16 21:28 104 04/11/16 20:59 21 04/11/16 19:56 99.7 101 16 83/57 100 04/11/16 16:00 99.0 100 18 93/60 99 I/O 04/11/16 04/11/16 04/11/16 04/12/16 04/12/16 04/12/16 07:00 15:00 23:00 07:00 15:00 23:00 Intake Total 480 ml 720 ml 480 ml 480 ml Balance 480 ml 720 ml 480 ml 480 ml Intake Oral 480 ml 720 ml 480 ml 480 ml # Voids 3 4 1 2 1 # Bowel Movements 0 0 1 Result Diagram: 04/11/16 1556 04/11/16 0436 Imaging Last Impressions Lower Extremity Ultrasound 04/11/16 0000 Signed Impressions: Service Date/Time: April 10:14 - CONCLUSION: Negative exam with no evidence of deep venous thrombosis. Jonh Dye MD Chest X-Ray 04/10/16 0000 Signed Impressions: Service Date/Time: Sunday, April 10, 2016 10:09 - CONCLUSION: Minimal air space disease in both lung bases. Considerations include atelectasis versus early inflammatory process. Xavier Garcia MD FACR Hip and Pelvis X-Ray 04/08/16 0000 Signed Impressions: Service Date/Time: Friday, April 08, 2016 13:54 - CONCLUSION: Anatomic alignment. Xavier Garcia MD Objective Remarks General: No acute distress. Heart: Regular rate and rhythm. No murmur. Lungs: Clear to auscultation bilaterally. No wheezes, rales, or rhonchi. Breathing is nonlabored. Abdomen: Soft, nontender, nondistended. Extremities: No lower extremity edema. Psych: Alert and oriented. Procedures 04/08/16 right total hip arthroplasty Urinary Catheter: No Vascular Central Line Catheter: No A/P Problem List: (1) Fever ICD Code: R50.9 Status: Acute (2) Anemia ICD Code: D64.9 Status: Acute (3) Hypotension ICD Code: I95.9 Status: Acute (4) Primary localized osteoarthrosis, pelvic region and thigh ICD Code: M16.10 Status: Acute Assessment and Plan 1. Osteoarthritis, right hip: Status post right total hip arthroplasty, POD #4. Continue pain control, bowel regimen, physical therapy. 2. Hypotension, tachycardia, fever: No apparent source of infection. UA is negative. Chest x-ray shows atelectasis. Blood cultures are negative so far. Patient is asymptomatic. Continue antibiotics, IV fluids. Leukocytosis has resolved. Rule out PE. 3. Lactic acidosis: Serum lactic acid level is elevated. Monitor labs. 4. DVT prophylaxis: Lovenox. 5. Anemia: Postoperative, likely secondary to blood loss. H&H improved. Discharge Planning If CT pulmonary angiogram is negative, patient can be discharged to SNF per orthopedic surgery orders. Sincere Telles MD Apr 12, 2016 12:50
[2016-04-12] MEDS: SODIUM CHLOR 0.9% 1000 ML INJ 1,000 ML IV SCH (13:01)
[2016-04-12] MEDS ORDERED: IOHEXOL 350 MG/ML 10 ML VIAL (for RAD DIAG) IV ONE (13:55)
--- NOTE | 2016-04-12 14:42 | RADRPT ---
EXAM DATE/TIME: 04/12/2016 13:57 [facility] COMPARISON: No previous studies available for comparison. INDICATIONS : Shortness of breath and chest pain. Recent surgery. IV CONTRAST: 75 cc Omnipaque 350 (iohexol) IV RADIATION DOSE: 23.26 CTDIvol (mGy) MEDICAL HISTORY : Gastroesophageal reflux disease. SURGICAL HISTORY : Left hip replacement. ENCOUNTER: Subsequent ACUITY: 1 day PAIN SCALE: 3/10 LOCATION: Chest TECHNIQUE: Volumetric scanning of the chest was performed using a pulmonary embolism protocol MIP images were reconstructed. Using automated exposure control and adjustment of the mA and/or kV acco rding to patient size, radiation dose was kept as low as reasonably achievable to obtain optimal diag nostic quality images. FINDINGS: There are bibasilar parenchymal changes evident. There is no axillary adenopathy. The re is no radiographically significant mediastinal adenopathy. There is no pericardial effusion. There are no central pulmonary emboli. Air-filled esophagus is seen down to the gastroesophageal junction. CONCLUSION: 1. There is no evidence for central pulmonary emboli. 2. Air-filled esophagus as described above. Xavier Garcia MD FACR on April 12, 2016 at 14:29 Board Certified Radiologist. This report was verified electronically.
[2016-04-12] MEDS: LEVOFLOXACIN 750 MG TAB PO SCH (15:41)
[2016-04-12 16:00] VITALS: BP 92/57; PULSE 106; RESP 18; TEMP 99.9; O2SAT 100
[2016-04-12] MEDS ORDERED: LYRI50CA PO (17:56)
[2016-04-12] MEDS ORDERED: PREG25 PO (17:56)
--- NOTE | 2016-04-17 15:32 | MD ---
cc: TINO CATES M.D. ADMISSION DATE: 04/08/2016 DISCHARGE DATE: 04/12/2016 ADMITTING DIAGNOSIS Severe degenerative osteoarthritis, right hip. DISCHARGE DIAGNOSIS Severe degenerative osteoarthritis, right hip. HISTORY OF PRESENT ILLNESS Mrs. Beck is a 55-year-old female who presented to the [facility] for evaluation by Dr. Tino Cates regarding her severe progressive right hip pain. She states the pain is a constant severe aching sensation that is inhibiting her activities of daily living. She states that the pain has been progressive for over the last year for which she has been treated for this ailment. She does have history of a well-placed and functioning left total hip arthroplasty. The patient notes her right hip pain is aggravated by weightbearing activities. She has no alleviating factors at this point in time although in the past she has tried medications, weight loss, physical therapy and home exercise program without any relief of symptoms. She does have x-ray evidence of severe degenerative osteoarthritis of the right hip. While in the office the patient was counseled on her diagnosis and treatment options. The risks, benefits and indications of all were discussed in great detail. The patient did elect to proceed with surgical intervention to include a right total hip arthroplasty. Date of surgery 04/08/2016: Right total hip arthroplasty, posterior approach. POST-OP After surgery the patient was admitted to [facility] where she received appropriate medical management, pain control, DVT prophylaxis as well as physical therapy DISCHARGE Once being discharged from the hospital the patient is cleared to go to a custodial facility. She is in stable condition. The patient may weight bear as tolerated with posterior hip precautions. She has received daily dressing changes and has been instructed on proper wound care management. She has been provided prescriptions for pain control as well as DVT prophylaxis medication. The patient has also been provided a follow-up appointment to see Dr. Tino Cates in the office approximately two weeks from the date of surgery. The patient and the patient's have asked appropriate questions which have all been answered. The patient is cleared for discharge. Dictated by: Tino Denny PA-C MD [facility] [place]/[facility] /9:07 AM /3:32 PM
== END 2016-04-12 17:43 | DRG 470 ==
LOC: HSDI 04-08 07:15 → N06B 04-08 15:54
PROVIDERS: ADMIT Orthopaedic Surgery Sports Medicine; ATTEND Orthopaedic Surgery Sports Medicine
PROC: 0SR904A Replacement of Right Hip Joint with Ceramic on Polyethylene Synthetic Substitute, Uncemented, Open Approach (ICD-10-PCS; principal; 2016-04-08 10:07)
DX: M16.11 Unilateral primary osteoarthritis, right hip (principal); E87.2 Acidosis; I95.9 Hypotension, unspecified; J98.11 Atelectasis; K21.9 Gastro-esophageal reflux disease without esophagitis; G25.81 Restless legs syndrome; E78.5 Hyperlipidemia, unspecified; R00.0 Tachycardia, unspecified; D72.829 Elevated white blood cell count, unspecified; D50.0 Iron deficiency anemia secondary to blood loss (chronic); Z87.891 Personal history of nicotine dependence
CPT/HCPCS: 71010; 71275; 73502; 76937; 80048; 81001; 83605; 85014; 85018; 85025; 85027; 86850; 86900; 86901; 87040; 87449; 93005; 93970; 94150; C1776; C9290; J0131; J0690; J1170; J1580; J1650; J1956; J2175; J2250; J2270; J2405; J2543; J2710; J3010; J3370; J7030; J7050; J7120; L1830; Q9967